=== PATIENT | female | born 1960 | race American Indian/Alaskan Native ===

== ENCOUNTER 2019-01-26 15:36 | Emergency (ER) | payer OTHER ==
[~2019-01-26] VITALS: Ht 170.2 cm; Wt 133.8 kg
[2019-01-26] MEDS ORDERED: Lipitor20 MG PO (16:09)
[2019-01-26] MEDS ORDERED: LIRA0.6P SC (16:10)
[2019-01-26] MEDS ORDERED: Metformin HCl1000 MG PO (16:10)
[2019-01-26] MEDS ORDERED: FLUO10 PO (16:12)
[2019-01-26] MEDS ORDERED: INSULANPEN SC (16:12)
== END 2019-01-26 18:04 | disposition home or self-care (01) ==
LOC: ER 15:36
DX: S00.03XA Contusion of scalp, initial encounter (principal); Z88.0 Allergy status to penicillin; Z88.1 Allergy status to other antibiotic agents; Z79.899 Other long term (current) drug therapy; Z87.891 Personal history of nicotine dependence; W19.XXXA Unspecified fall, initial encounter
CPT/HCPCS: 70450; 99283-25